=== PATIENT | male | born 1965 | race Caucasian/White ===

== ENCOUNTER 2016-09-19 10:14 | Emergency (ER) | payer OTHER ==
[~2016-09-19] VITALS: Ht 182.9 cm; Wt 68.2 kg
[2016-09-19 10:16] VITALS: BP 174/109; PULSE 94; RESP 20; O2SAT 97
--- NOTE | 2016-09-19 10:27 | ED.REPORT ---
HPI-Extremity Problem Lower Date of Service Sep 19, 2016 ED Provider: Angus Palmer MD Patient is a 51 year old male with a hx of a blood clot who presents to the ED complaining of worsening R foot swelling onset a few days ago. Associated symptoms include R foot pain exacerbated by walking. He reports that he has baseline leg swelling and is on a diuretic. He denies new leg pain, fever, trauma, or any other symptoms. He has had a blood clot in his leg several years ago and was placed on blood thinners. He is no longer on blood thinners. He denies recent surgeries. 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 No leg pain), Extremity swelling (R foot ) Complete sys rev & neg: except as marked. Physical Exam Initial Vital Signs Vital Signs (First) Date Time Temp Pulse Resp B/P Pulse Ox O2 Delivery O2 Flow Rate FiO2 09/19/16 10:16 36.2 94 20 174/109 97 Room Air Initial VS: Reviewed General/Constitutional: Well-developed, Well-nourished Head / Eyes: Atraumatic, Normocephalic Neck: Full range of motion Respiratory: No respiratory distress Abdomen / GI: Soft, Non-tender Skin: Warm, Dry Neurologic: Alert, Oriented, Nonfocal Psychiatric: Mood/affect normal, Behavior normal, Normal thought content Lower Extremity / Pelvis / MS: Inspection NL R calf 49 cm L calf 48 cm Right Foot: Positive: Swelling present..., Tenderness present..., Warmth present Interpretation & Diagnostics X-Ray Interpretation Xray Interpretation: IMPRESSION: Age indeterminate fracture of the fourth metatarsal Diffuse cortical hypertrophy, and sclerosis about the bases of the lesser metatarsals, suggesting multiple age indeterminate likely multiple, chronic stress fractures. Please correlate clinically. The appearance also raises the possibility of neuropathic arthropathy (especially in the setting of vascular calcifications). Dictated by: Jamar Horner M.D. on 09/19/2016 at 11:35 Approved by: Jamar Horner M.D. on 09/19/2016 at 11:38 Study Performed: R foot, 3 views X-Ray Ordered: Foot right Interpretation / Wet Read by: Interpret - Radiologist Re-Eval/Medical Decision Med Decision/Clinical Course 51-year-old male history of DVT presenting with right foot swelling and pain. Unsure of trauma. He has a right fourth metatarsal fracture. He also has a right superficial thrombus right ankle. No DVT. Right foot in a walking boot given patient declined splint and crutches. He will follow-up with his primary doctor tomorrow for possible orthopedic surgery referral and for discussion of anticoagulation and possible repeat ultrasound. Return precautions given if any worsening swelling, pain, fevers, chest pain, dyspnea, other new/worsening symptoms. Re-Evaluation/Progress #1: Time of Eval: 12:18 Re-Evaluation/Progress Note: Rechecked pt. Discussed imaging results and need for US to rule out blood clot. Patient understands and agrees with plan. All questions addressed at this time. Re-Evaluation/Progress #2: Time of Eval: 13:54 Re-Evaluation/Progress Note: Discussed imaging results. Discussed plan for discharge with follow up. Patient understands and agrees with plan. All questions addressed at this time. Counseled Regarding: Diagnosis, Need for follow-up, When/why to return to ED Discharge & Departure Impression: Primary Impression: Superficial thrombosis of right lower extremity Additional Impression: Metatarsal fracture Encounter type: initial encounter Metatarsal bone: fourth Fracture type: closed Laterality: right Disposition: Home Discharge Condition All VS Reviewed: Yes Condition: Stable Patient Instructions: Splint Care (ED) Additional Instructions: Thank you for entrusting us with your care. It appears that you have a superficial thrombosis in your right foot and a metatarsal fracture. Follow up with your primary doctor for a repeat ultrasound in the next few days. Your primary doctor will decide if you need anti-coagulation. Return to the emergency department if you experience worsening swelling, shortness of breath, chest pain, or any new or worsening symptoms. Referrals: Manoj Castro MD (PCP) Scribe Attestation Portions of this note were transcribed by Reinaldo Xiong. I, Dr. Palmer personally performed the history, physical exam and medical decision-making; I reviewed and confirmed the accuracy of the information in the transcribed note. Signed by: Reinaldo Xiong 09/19/2016, 1402 copies to: Manoj Castro MD, Ben M MD Sep 19, 2016 10:27 REINALDO XIONG Sep 19, 2016 10:34
--- NOTE | 2016-09-19 11:40 | DRSVH ---
PROCEDURE: X-RAY RIGHT FOOT COMPLETE, MINIMUM THREE VIEWS ([id number]) INDICATIONS: R foot pain swelling TECHNIQUE: 3 views of the foot were acquired. COMPARISON: [facility], , ANKLE 3 VIEWS RIGHT, 01/30/2012, 22:46. FINDINGS: Bones: Age indeterminate fracture of the base of the fourth metatarsal. There is also prominent corti alex hypertrophy and sclerosis involving the bases of the metatarsals diffusely. Chronic posterior and plantar calcaneal spurring and diffuse midfoot osteophytosis. Soft tissues: No tibiotalar joint effusion. Achilles tendon appears normal. There are vascular alex cifications. There is midfoot and forefoot soft tissue swelling IMPRESSION: Age indeterminate fracture of the fourth metatarsal Diffuse cortical hypertrophy, and sclerosis about the bases of the lesser metatarsals, suggesting mul tiple age indeterminate likely multiple, chronic stress fractures. Please correlate clinically. The a ppearance also raises the possibility of neuropathic arthropathy (especially in the setting of vascul ar calcifications). Dictated by: Jamar Horner M.D. on 09/19/2016 at 11:35 Approved by: Jamar Horner M.D. on 09/19/2016 at 11:38
[2016-09-19 14:21] VITALS: BP 144/90; PULSE 81; RESP 16; O2SAT 99
--- NOTE | 2016-09-20 05:59 | DRSVH ---
PROCEDURE: US VEINOUS LEG DUPLEX UNILATERAL, RIGHT INDICATIONS: RLE swelling h/o DVT TECHNIQUE: Real-time imaging, as well as color and pulse Doppler interrogation, were performed of the lower extr emity deep veins from the inguinal ligament to the popliteal fossa. COMPARISON: None. FINDINGS: The deep veins are normally compressible, and free of intraluminal thrombus. Color and pu lse Doppler demonstrate normal phasic intraluminal flow. There is normal augmentation response to di stal compression maneuver. IMPRESSION: No deep venous thrombosis. Possible anterior ankle superficial thrombophlebitis, versus small hematoma. Dictated by: Jamar Horner M.D. on 09/19/2016 at 13:56 Approved by: Jamar Horner M.D. on 09/19/2016 at 13:58
== END 2016-09-19 14:07 | disposition home or self-care (01) ==
LOC: SED 10:14
DX: I82.811 Embolism and thrombosis of superficial veins of right lower extremity (principal); S92.341A Displaced fracture of fourth metatarsal bone, right foot, initial encounter for closed fracture; X58.XXXA Exposure to other specified factors, initial encounter; Y93.9 Activity, unspecified; Y92.9 Unspecified place or not applicable; Y99.9 Unspecified external cause status; E11.9 Type 2 diabetes mellitus without complications; I10 Essential (primary) hypertension